=== PATIENT | male | born 1970 | race Caucasian/White ===

== ENCOUNTER 2017-05-06 10:20 | Day surgery (SDC) | payer BC ==
[2017-04-28 09:30] LABS: HEMATOCRIT 37.9 % (37.9-51.0); HGB HCT DIFFERENCE 1.1; MEAN CORPUSCULAR HEMOGLOBIN 30.9 pg (27.0-33.4); MEAN CORPUSCULAR HGB CONC 34.3 g/dL (32.0-36.0); MEAN CORPUSCULAR VOLUME 90 fl (80-97); RED BLOOD COUNT 4.21 10^6/uL (4.35-5.55); RED CELL DISTRIBUTION WIDTH 13.7 % (11.5-14.0); WHITE BLOOD COUNT 5.8 10^3/uL (4.0-10.5)
[2017-04-28 09:55] LABS: ANION GAP 13 (5-19); BLOOD UREA NITROGEN 16 mg/dL (7-20); CALCIUM 8.9 mg/dL (8.4-10.2); CARBON DIOXIDE 25 mmol/L (22-30); CHLORIDE 108 mmol/L (98-107); CREATININE RESULT 0.87 mg/dL (0.52-1.25); GLUCOSE 89 mg/dL (75-110); POTASSIUM 4.6 mmol/L (3.6-5.0); SODIUM 145.5 mmol/L (137-145)
[~2017-05-06 10:20] MED LIST: ACETAMINOPHEN 0 ML IV ONE; BACITRACIN INJ 50,000 UNIT VIAL ONE; BUPIVACAINE HCL 0.25 % INJ/PF (2.5 MG/1 ML) 30 ML VIAL ONE; CLINDAMYCIN 600 MG/D5W RTU 600 MG/50 ML RTUPB IV PRN; EPHEDRINE SULFATE INJ 50 MG/1 ML AMPULE ONE; FENTANYL CITRATE INJ/PF 100 MCG/2 ML AMPUL ONE; HYDROMORPHONE HCL INJ/PF 2 MG/ML AMPULE ONE; LACTATED RINGERS 1000 ML IV PRN; LIDOCAINE 0.5% INJ-PF (5 MG/ML) 50 ML SDV ONE; LIDOCAINE 0.5% INJ-PF (5 MG/ML) 50 ML SDV SUBCUT PRN; MIDAZOLAM 2 MG/2 ML INJ ONE; MORPHINE SULFATE 10 MG/ML INJ ONE; PROPOFOL INJ 200 MG/20 ML VIAL IV ONE
[2017-05-06] MEDS ORDERED: FENTANYL CITRATE INJ/PF 100 MCG/2 ML AMPUL ONE ×3 (12:45→15:23)
[2017-05-06] MEDS ORDERED: HYDROMORPHONE HCL INJ/PF 2 MG/ML AMPULE ONE (12:46)
[2017-05-06] MEDS ORDERED: PROPOFOL INJ 200 MG/20 ML VIAL IV ONE (12:46)
[2017-05-06] MEDS ORDERED: ACETAMINOPHEN 0 ML IV ONE (12:46)
[2017-05-06] MEDS ORDERED: MIDAZOLAM 2 MG/2 ML INJ ONE ×2 (12:46→13:09)
[2017-05-06] MEDS ORDERED: IBUPROFEN INJ 800 MG/8 ML VIAL IV ONE (12:47)
[2017-05-06] MEDS ORDERED: BUPIVACAINE HCL 0.25 % INJ/PF (2.5 MG/1 ML) 30 ML VIAL ONE (13:18)
[2017-05-06] MEDS ORDERED: BACITRACIN INJ 50,000 UNIT VIAL ONE (13:19)
[2017-05-06] MEDS ORDERED: LIDOCAINE 0.5% INJ-PF (5 MG/ML) 50 ML SDV ONE (13:19)
[2017-05-06] MEDS ORDERED: DIPHENHYDRAMINE HCL 50 MG/ML VIAL IV PRN (14:03)
[2017-05-06] MEDS ORDERED: PROMETHAZINE HCL INJ 25 MG/1 ML VIAL IV PRN ×2 (14:03)
[2017-05-06] MEDS ORDERED: FENTANYL CITRATE INJ/PF 100 MCG/2 ML AMPUL IV PRN ×3 (14:03)
[2017-05-06] MEDS ORDERED: ONDANSETRON HCL INJ/PF 4 MG/2 ML SDV IV PRN (14:03)
--- NOTE | 2017-05-06 14:57 | PDOC DISCHARGE SUMMARY ---
Discharge Summary (SDC) - Discharge Final Diagnosis: Right inguinal hernia symptomatic. Date of Surgery: 05/06/17 Discharge Date: 05/06/17 Condition: Good Treatment or Instructions: Discharge home [after recovery per ASU criteria]. Diet ,,as tolerated, when fully awake advance as tolerated. Activities within moderation encouraged. Activity is up to the level of walking encouraged. No lifting over 10 pounds. Follow up in my office by appointment in about [1 week]. Call for appointment. Leave wounds [covered], [keep clean and dry, until office visit in 1 week]. Hold of on school/work [until evaluation in office]. Meds per med rec Percocet and Toradol. May shower [in 48 hrs], [try to keep operated area as dry as possible]. Prescriptions: Ketorolac Tromethamine [Toradol 10 mg Tablet] 10 mg PO Q8HP #9 tablet Oxycodone HCl/Acetaminophen [Percocet 5-325 mg Tablet] 1 tab PO ASDIR PRN #15 tab PRN Reason: Referrals: FRANCISCO MONROY FNP [Primary Care Provider] - Discharge Diet: As Tolerated Respiratory Treatments at Home: Deep Breathing/Coughing Discharge Activity: Walk Frequently Report the Following to Your Physician Immediately: Shortness of Breath, Unusual Bleeding
--- NOTE | 2017-05-06 15:02 | Operative Report ---
Operative Report DATE OF SURGERY: 05/06/17 PREOPERATIVE DIAGNOSIS: Right inguinal hernia symptomatic. POSTOPERATIVE DIAGNOSIS: Right inguinal hernia symptomatic. Indirect with lipoma of cord. OPERATION: Reduction and repair of right inguinal hernia with resection of lipoma of cord. With mesh. SURGEON: SUDHIR JIANG TRAFFIC SIGNAL TECHNICIAN: None ANESTHESIA: GA TISSUE REMOVED OR ALTERED: Lipoma of cord. COMPLICATIONS: None. ESTIMATED BLOOD LOSS: 5 mL. INTRAOPERATIVE FINDINGS: Of an indirect inguinal hernia a relatively thin sac, chronically incarcerated adjacent to the cord structures. Dissection away from the cord structures was somewhat tedious because of adhesions. Nice dissection accomplished and the sac was restored intraperitoneally. A lipoma of the cord was situated somewhat laterally and this was resected and submitted for pathology. The cord structures were identified and preserved including the vas deferens. The ilioinguinal nerve was preserved. Satisfactory maintenance of reduction was accomplished with a Prolene hernia system mesh which was deployed satisfactorily in the preperitoneal space and, via the connector to the space between the internal and external oblique muscles. PROCEDURE: After obtaining informed consent and going over the procedure with [the patient ], he was taken to the operating room, he was anesthetized and intubated. The abdomen was prepped and draped in the usual sterile fashion. After the universal timeout, in which it was verified that the patient received IV antibiotic, the procedure commenced. A transverse incision was made in the right lower abdomen abdominal, groin area , just above the pubic tubercle. 7 cm in length.Local, regional anesthesia was infiltrated, just before incision.. Incision was made with a [15 blade scalpel] . Dissection now proceeded through the subcutaneous tissue down to the external oblique aponeurosis. The external ring was identified and the external oblique opened in the line of its fibers. The inguinal canal was thus displayed. Dissection was facilitated by the use a headlight and using loupe magnification. The spermatic cord was dissected off the pubic tubercle and surrounded with a moist Spencer drain, the cremasteric fascia was now incised longitudinally revealing the contents of the spermatic cord. The sac was readily evident and this was grasped with a hemostat. It was now dissected in a retrograde fashion into the retroperitoneal space. It was now reduced within the the preperitoneal space. The preperitoneal space was now developed circumferentially. It easily accommodated a sponge which was removed. A laterally placed lipoma of the cord was dissected to the level of the internal black, clamped and divided and ligated. Hemostasis was checked for and ensured therein. The space between the external and internal oblique aponeuroses was now developed to accommodate the external portion of the mesh. Having done so a Prolene hernia system mesh was now folded, in the stuffer's approved fashion and inserted into the preperitoneal space. The internal portion was deployed flat in the preperitoneal space the external portion was unfolded and tucked beneath the external oblique. Secured with a 0 PDS suture to the internal oblique superiorly, the fascia adjacent to the pubic tubercle medially , inferiorly it was split up to the connector, the the split mesh was now used to surround the spermatic cord. It was reapproximated with a suture of 0 PDS. 0 PDS was now used to approximate the inferior border of the mesh to the shelving edge of Poupart's ligament with a single suture. Laterally the mesh was tucked beneath the external oblique. The external oblique was now reconstituted using a continuous suture of 3-0 PDS. 3-0 PDS interrupted sutures were used to approximate the subcutaneous tissues after removing the Spencer drain. The skin was closed using a continuous subcuticular suture of 4- 0 Monocryl reinforced with Steri-Strips over benzoin. Copies dictated operative report to Dr. Sudhir Stewart MD.
[2017-05-06] MEDS ORDERED: HYDROCODONE/ACETAMINOPHEN 5-325 MG TABLET ONE (16:22)
[2017-05-06] MEDS ORDERED: ONDANSETRON HCL INJ/PF 4 MG/2 ML SDV ONE (17:26)
[2017-05-06] MEDS ORDERED: SUCCINYLCHOLINE CHLORIDE INJ 200 MG/10 ML VIAL ONE (17:26)
[2017-05-06] MEDS ORDERED: METOCLOPRAMIDE HCL INJ/PF 10 MG/2 ML SDV ONE (17:26)
[2017-05-06] MEDS ORDERED: LIDOCAINE 2% INJ-PF (20 MG/ML) 2 ML AMPUL ONE (17:26)
[2017-05-06] MEDS ORDERED: DEXAMETHASONE SOD PHOSPHATE INJ 4 MG/1 ML VIAL ONE (17:26)
[2017-05-06] MEDS ORDERED: KETOROLAC TROMETHAMINE 60 MG/2 ML SDV ONE (17:26)
[2017-05-06 17:48] VITALS: BP 152/96
== END 2017-05-06 17:25 | disposition home or self-care (01) ==
LOC: OROUT 10:20
PROVIDERS: ATTEND Surgery
PROC: 0YU50JZ Supplement Right Inguinal Region with Synthetic Substitute, Open Approach (ICD-10-PCS; principal; 2017-05-06 11:30)
DX: K40.90 Unilateral inguinal hernia, without obstruction or gangrene, not specified as recurrent (principal); D17.6 Benign lipomatous neoplasm of spermatic cord; Z88.0 Allergy status to penicillin
CPT/HCPCS: 36415; 85027; 80048; 88304 ×2; 49505; 55520; C1781; J2250; J3490 ×5; J1100; J1885; J3010; J2765; J0330; J2405; J2704; 830; J0131; J1170; J1741; J2270